=== PATIENT | female | born 1970 | race Caucasian/White ===

== ENCOUNTER → 2017-10-08 | Outpatient (CLI) | payer BC, OTHER | LOC: M WUC 10:37 | DX: S20.222A Contusion of left back wall of thorax, initial encounter (principal); X58.XXXA Exposure to other specified factors, initial encounter; Y93.9 Activity, unspecified; Y92.89 Other specified places as the place of occurrence of the external cause | CPT/HCPCS: 71101 ==

== ENCOUNTER → 2018-07-01 | Outpatient (CLI) | payer BC, OTHER ==
[2018-07-01 16:21] LABS: BASO # 0.1 10^3/uL (0.0-0.2); BASO % 0.6 % (0.0-1.0); EOS % 0.5 % (0.0-3.0); HEMATOCRIT 34.5 % (36.0-47.0); HEMOGLOBIN 11.2 g/dl (12.0-15.5); LYMPH # 3.7 10^3/uL (1.5-4.5); LYMPH % 43.8 % (24.0-44.0); MEAN CORPUSCULAR HEMOGLOBIN 30.4 pg (27.0-33.0); MEAN CORPUSCULAR HGB CONC 32.5 g/dl (32.0-36.5); MEAN CORPUSCULAR VOLUME 93.5 fl (80.0-96.0); MONO # 0.7 10^3/uL (0.0-0.8); NEUTROPHILS % 46.6 % (36.0-66.0); PLATELET COUNT, AUTOMATED 262 10^3/uL (150-450); RED BLOOD COUNT 3.69 10^6/uL (4.00-5.40); WHITE BLOOD COUNT 8.5 10^3/uL (4.0-10.0)
--- NOTE | 2018-07-01 16:47 | REP ---
Chest x-ray: Two views. History: Pelvic pain. There are irregular menses. . Comparison study: October 08, 2017 . Findings: The lungs are well inflated and free of infiltrate. The pleural angles are sharp. The heart size is normal. Pulmonary vasculature is not increased. No significant bony abnormality is seen. Impression: Negative chest x-ray. Electronically Signed by Lefty Angel MD 07/01/2018 04:38 P
[2018-07-01 16:48] LABS: ALBUMIN 3.9 GM/DL (3.2-5.2); ALT/SGPT 18 U/L (12-78); BILIRUBIN,TOTAL 0.7 MG/DL (0.2-1.0); BLOOD UREA NITROGEN 15 MG/DL (7-18); CALCIUM LEVEL 8.7 MG/DL (8.5-10.1); CARBON DIOXIDE LEVEL 28 MEQ/L (21-32); CHLORIDE LEVEL 105 MEQ/L (98-107); CREATININE FOR GFR 0.73 MG/DL (0.55-1.30); GLOMERULAR FILTRATION RATE > 60.0 (>58); GLUCOSE, FASTING 115 MG/DL (70-100); SODIUM LEVEL 139 MEQ/L (136-145); TOTAL PROTEIN 6.5 GM/DL (6.4-8.2)
--- NOTE | 2018-07-01 17:25 | REP ---
CT abdomen and pelvis without IV or oral contrast: History: Left flank pain. CT findings: Preliminary digital title 1 tutor radiograph is unremarkable. The lung bases are clear on axial CT images. There are scattered well-circumscribed low density liver lesions consistent with cysts. The largest of these is in the left lobe measuring 20 mm in greatest diameter. Spleen is unremarkable. No adrenal lesion is seen. No pancreatic abnormalities observed. No abnormalities noted in the gallbladder. There is no evidence of hydronephrosis or intrarenal calculus on either side. The uterus is retroverted, retroflexed, and enlarged suggesting fibroid change. It measures 8.8 cm in right to left dimension by 9.5 cm anterior to posterior by 10.8 cm craniocaudal. No ovarian abnormality is seen on either side. Urinary bladder is unremarkable. No pelvic adenopathy is seen. Normal appendix is noted. There is minimal diverticulosis affecting the sigmoid colon. No CT evidence of diverticulitis is seen. Impression: Retroverted retroflexed enlarged fibroid uterus. Left colonic diverticulosis. Multiple hepatic cysts. Otherwise negative. Electronically Signed by Lefty Angel MD 07/02/2018 08:31 A
[2018-07-02 14:42] LABS: LIPASE 187 U/L (73-393)
== END ==
LOC: M RAD 15:44
PROVIDERS: ATTEND Physician Assistant
DX: R10.9 Unspecified abdominal pain (principal)

== ENCOUNTER → 2018-07-01 | Outpatient (REF) | payer OTHER ==
[2018-07-01 17:14] LABS: AMORPHOUS SEDIMENT LARGE (NEGATIVE); APPEARANCE, URINE TURBID (CLEAR); BACTERIA, URINE AUTO NEGATIVE (NEGATIVE); BILIRUBIN, URINE AUTO NEGATIVE (NEGATIVE); BLOOD, URINE BLOOD 1+ (NEGATIVE); COLOR, URINE YELLOW (YELLOW); GLUCOSE, URINE (UA) AUTO NEGATIVE (NEGATIVE); KETONE, URINE AUTO TRACE mg/dL (NEGATIVE); LEUKOCYTE ESTERASE, URINE AUTO NEGATIVE (NEGATIVE); MUCUS, URINE LARGE (NEGATIVE); NITRITE, URINE AUTO NEGATIVE (NEGATIVE); PROTEIN, URINE AUTO NEGATIVE (NEGATIVE); RBC, URINE AUTO 0 /HPF (0-3); SPECIFIC GRAVITY URINE AUTO 1.031 (1.002-1.035); SQUAMOUS EPITHELIAL CELL UR AU 2 /HPF (0-6); UROBILINOGEN, URINE AUTO 0.2 mg/dL (0.0-2.0); WBC, URINE AUTO 0 /HPF (0-3)
== END ==
LOC: M SFHCCAPE 13:47
PROVIDERS: ATTEND Physician Assistant
DX: R10.9 Unspecified abdominal pain (principal)

== ENCOUNTER 2019-07-13 16:49 | Emergency (ER) | payer BC, OTHER ==
[~2019-07-13] VITALS: Ht 167.6 cm; Wt 77.6 kg
[2019-07-13] MEDS ORDERED: LIDOCAINE 1% MDV 20ML VIAL IM ONE (18:00)
[2019-07-13 18:45] VITALS: BP 131/79
--- NOTE | 2019-07-13 18:54 | REP ---
RIGHT THIRD DIGIT: Four views of the right third digit are performed. No fracture, dislocation or intrinsic bone disease is visualized. There is soft tissue disruption at the tip of the digit with no evidence of radiopaque foreign body. Electronically Signed by Saul Quan MD 07/14/2019 05:03 P
== END 2019-07-13 18:48 | disposition home or self-care (01) ==
LOC: M ED 16:49
DX: S61.312A Laceration without foreign body of right middle finger with damage to nail, initial encounter (principal); W26.8XXA Contact with other sharp object(s), not elsewhere classified, initial encounter; Y92.018 Other place in single-family (private) house as the place of occurrence of the external cause

== ENCOUNTER → 2021-08-08 | Outpatient (REF) | payer OTHER ==
[2021-08-08 19:06] LABS: APPEARANCE, URINE HAZY (CLEAR); BACTERIA, URINE AUTO 1+ (NEGATIVE); BILIRUBIN, URINE AUTO NEGATIVE (NEGATIVE); BLOOD, URINE BLOOD 2+ (NEGATIVE); COLOR, URINE YELLOW (YELLOW); GLUCOSE, URINE (UA) AUTO NEGATIVE (NEGATIVE); KETONE, URINE AUTO NEGATIVE (NEGATIVE); LEUKOCYTE ESTERASE, URINE AUTO NEGATIVE (NEGATIVE); MUCUS, URINE SMALL (NEGATIVE); NITRITE, URINE AUTO NEGATIVE (NEGATIVE); PROTEIN, URINE AUTO NEGATIVE (NEGATIVE); RBC, URINE AUTO 0 /HPF (0-3); SPECIFIC GRAVITY URINE AUTO 1.012 (1.002-1.035); SQUAMOUS EPITHELIAL CELL UR AU 2 /HPF (0-6); UROBILINOGEN, URINE AUTO 0.2 mg/dL (0.0-2.0); WBC, URINE AUTO 1 /HPF (0-3)
[2021-08-08 19:31] LABS: BLOOD UREA NITROGEN 9 MG/DL (7-18); CARBON DIOXIDE LEVEL 26 MEQ/L (21-32); CHLORIDE LEVEL 109 MEQ/L (98-107); CREATININE FOR GFR 0.87 MG/DL (0.55-1.30); GLOMERULAR FILTRATION RATE > 60.0 (>51); GLUCOSE, FASTING 73 MG/DL (70-100); POTASSIUM SERUM 4.2 MEQ/L (3.5-5.1); SODIUM LEVEL 140 MEQ/L (136-145)
[2021-08-08 19:32] LABS: ALBUMIN 3.4 GM/DL (3.2-5.2); ALT/SGPT 16 U/L (12-78); BILIRUBIN,TOTAL 0.7 MG/DL (0.2-1.0); CALCIUM LEVEL 8.5 MG/DL (8.5-10.1); CHOLESTEROL LEVEL 169 MG/DL (<200); CHOLESTEROL RISK RATIO 2.725 (<5); FOLATE 21.2 NG/ML; HDL CHOLESTEROL 62 MG/DL (>40); LDL CHOLESTEROL 89 MG/DL (<100); NON-HDL-C 107 MG/DL; TOTAL PROTEIN 6.2 GM/DL (6.4-8.2); TRIGLYCERIDES LEVEL 92 MG/DL (<150); VITAMIN B12 LEVEL 474 PG/ML
[2021-08-08 19:36] LABS: BASO # 0.1 10^3/uL (0.0-0.2); BASO % 0.5 % (0.0-1.0); EOS # 0.1 10^3/uL (0.0-0.5); EOS % 0.7 % (0.0-3.0); HEMATOCRIT 36.2 % (36.0-47.0); HEMOGLOBIN 10.9 g/dl (12.0-15.5); LYMPH # 5.6 10^3/uL (1.5-5.0); LYMPH % 58.9 % (24.0-44.0); MEAN CORPUSCULAR HEMOGLOBIN 27.9 pg (27.0-33.0); MEAN CORPUSCULAR HGB CONC 30.1 g/dl (32.0-36.5); MEAN CORPUSCULAR VOLUME 92.6 fl (80.0-96.0); MONO # 0.5 10^3/uL (0.0-0.8); MONO % 5.1 % (2.0-8.0); NEUTROPHILS # 3.3 10^3/uL (1.5-8.5); NEUTROPHILS % 34.4 % (36.0-66.0); PLATELET COUNT, AUTOMATED 317 10^3/uL (150-450); RED BLOOD COUNT 3.91 10^6/uL (4.00-5.40); WHITE BLOOD COUNT 9.5 10^3/uL (4.0-10.0)
[2021-08-09 11:20] LABS: TOTAL 25(OH) VITAMIN D 38.3 NG/ML (30.0-100.0)
== END ==
LOC: M SFHCCAPE 07:47
PROVIDERS: ATTEND Physician Assistant
DX: Z00.00 Encounter for general adult medical examination without abnormal findings (principal)

== ENCOUNTER → 2023-05-26 | Outpatient (CLI) | payer BC | LOC: M CLY 15:31 | PROVIDERS: ATTEND Physician Assistant Medical | DX: M54.2 Cervicalgia (principal); M47.812 Spondylosis without myelopathy or radiculopathy, cervical region ==

== ENCOUNTER → 2023-07-15 | Outpatient (CLI) | payer BC, OTHER | LOC: M PLAIMG 07:12 | PROVIDERS: ATTEND Physician Assistant Medical | DX: M48.02 Spinal stenosis, cervical region (principal) ==